=== PATIENT | male | born 1950 | race Two or more races ===

== ENCOUNTER → 2021-01-15 08:00 | Outpatient (CLI) | payer OTHER ==
[~2021-01-15 08:00] MED LIST: ATORVASTATIN CA10 MG PO; COZAAR50 MG PO; GEMFIBROZIL600 MG PO; LEVO-T75 MCG PO; VITAL-D RX TAB1 EACH PO
== END | disposition home or self-care (01) ==
LOC: LAB 08:00 → ADM 08:30 → CIR.AMB 01-21 08:30 → EDSTATUS 01-21 08:30 → CIR.AMB 01-21 13:35
PROVIDERS: ATTEND Surgery
DX: N52.01 Erectile dysfunction due to arterial insufficiency (principal); N52.8 Other male erectile dysfunction; N52.31 Erectile dysfunction following radical prostatectomy; Z01.810 Encounter for preprocedural cardiovascular examination

== ENCOUNTER → 2022-01-21 | Outpatient (CLI) | payer OTHER | END | disposition home or self-care (01) | LOC: TOM 09:08 | PROVIDERS: ATTEND Internal Medicine Gastroenterology | DX: R19.5 Other fecal abnormalities (principal); K56.600 Partial intestinal obstruction, unspecified as to cause ==